=== PATIENT | female | born 1960 | race Caucasian/White ===

== ENCOUNTER → 2016-04-26 | Outpatient (CLI) | payer BC ==
[~2016-04-26] MED LIST: IOPAMIDOL (ISOVUE 370) 100 ML BTL IV ONE
--- NOTE | 2016-04-26 11:08 | DX ---
Excretory Urogram (IVP) Indication: Left pyeloplasty in June 2015. Mild left hydronephrosis on prior study. Technique: Training Director view of the abdomen followed by sequential anterior and oblique views of the abdomen including 40 minutes post void image. 100 mL of Isovue-300 were uneventfully intravenously administe red. Cumulative dose: 14 mGy. Comparison: Excretory urogram dated September 20, 2015 Findings: Training Director radiograph reveals normal bowel pattern. No calculi overlying the kidneys or expected course of the ureters. The immediate image reveals prompt symmetric nephrograms and early excretion into normal caliber rajiv p bilateral calyces. The 5 minute image reveals symmetric filling of bilateral normal calyces, bilateral mildly distended renal pelves and normal caliber proximal ureters. The oblique 5 minute views reveal normal symmetric downstream contrast in the ureters and early filling of the urinary bladder. The 10 and 20 minute AP and oblique views reveal symmetric drainage of contrast from the pelvicalycea l systems, in fact, the left renal pelvis drains quicker than the right. The 40 minute postvoid image reveals nearly completely decompressed left pelvicalyceal system and min imal residual contrast in the right renal pelvis. The urinary bladder is nearly completely empty. Impression: No residual hydronephrosis. Bilateral pelvicalyceal systems are normal.
== END ==
LOC: FIMAGING 08:34
PROVIDERS: ATTEND Specialist
PROC: BT1F1ZZ Fluoroscopy of Left Kidney, Ureter and Bladder using Low Osmolar Contrast (ICD-10-PCS; principal; 2016-04-26)
PROC: BT1D1ZZ Fluoroscopy of Right Kidney, Ureter and Bladder using Low Osmolar Contrast (ICD-10-PCS; principal; 2016-04-26)
DX: Z03.89 Encounter for observation for other suspected diseases and conditions ruled out (principal); Z98.890 Other specified postprocedural states; Z88.0 Allergy status to penicillin
CPT/HCPCS: Q9967

== ENCOUNTER → 2017-05-16 | Outpatient (CLI) | payer BC | LOC: FIMAGING 12:01 | PROVIDERS: ATTEND Family Medicine | DX: J40 Bronchitis, not specified as acute or chronic (principal); J84.10 Pulmonary fibrosis, unspecified ==

== ENCOUNTER → 2017-08-29 | Outpatient (CLI) | payer BC | LOC: FIMAGING 14:45 | PROVIDERS: ATTEND Family Medicine | DX: Z12.31 Encounter for screening mammogram for malignant neoplasm of breast (principal) ==

== ENCOUNTER 2018-04-10 19:04 | Emergency (ER) | payer BC ==
[2018-04-10 19:12] VITALS: BP 104/74
--- NOTE | 2018-04-10 19:26 | EDPHY ---
H & P Time Seen by Provider: 04/10/18 19:21 HPI/ROS: CHIEF COMPLAINT: Left index finger skin avulsion HISTORY OF PRESENT ILLNESS: 57-year-old [id number] female with out-of- date tetanus was cutting food this evening sustained superficial skin avulsion to her left index finger distal phalanx. Bleeding continues. No paresthesia. PHYSICAL EXAM (Prior to examination, patient consented to physical exam, hands were washed and my usual and customary physical exam procedures followed) 1) GENERAL: Well-developed, well-nourished, alert and oriented. Appears to be in no acute distress. 2) HEAD: Normocephalic 3) HEENT: sclera anicteric 4) LUNGS: Breathing comfortably. 5) SKIN: Left index finger distal phalanx superficial skin avulsion with slow capillary like bleed. No signs of infection. Full sensation. Smoking Status: Former smoker Constitutional: Initial Vital Signs Temperature (C) 36.5 C 04/10/18 19:09 Heart Rate 67 04/10/18 19:09 Respiratory Rate 18 04/10/18 19:09 Blood Pressure 104/74 04/10/18 19:09 O2 Sat (%) 97 04/10/18 19:09 O2 Delivery Mode Room Air Allergies/Adverse Reactions: Penicillins Allergy (Verified 04/10/18 19:09) Hives Sulfa (Sulfonamide Antibiotics) Allergy (Verified 04/10/18 19:09) Itching Home Medications: Medication Instructions Recorded Herbals/Supplements -Info Only 1 ea PO DAILY 06/21/15 Ibuprofen [Motrin (*)] 400 mg PO BID PRN 06/21/15 traZODone [traZODONE 100MG (*)] 100 mg PO HS 06/21/15 Hydrocodone/APAP 5/325 [[place] 1 - 2 tab PO Q4H PRN #20 tab 07/09/15 5/325 (*)] MDM/Departure - MDM Medications Given: Discontinued Medications Diphtheria/Tetanus/Acell Pertussis (Boostrix) 0.5 ml IM .ONCE ONE Stop: 04/10/18 19:51 Last Admin: 04/10/18 19:53 Dose: 0.5 ml ED Course/Re-evaluation: 7:24 p.m.: As I was about to place the digital nerve block the patient complained of feeling dizzy, lightheaded. She was laid down. Digital nerve block will be held. Suspect vasovagal near-syncope secondary to site of needle blood. Her tetanus will be updated as well. Care of patient under supervision of secondary supervising physician Dr Marcello Harris . - Depart Disposition: Home, Routine, Self-Care Clinical Impression: Skin avulsion left index finger Condition: Good Instructions: Skin Avulsion (ED) Additional Instructions: Return to the ER if you develop redness, swelling, discharge, warmth to the wound, red streaks going up your arm, or any other symptoms that concern you. Referrals: Kady Whitlock MD [Primary Care Provider] - 2-3 days, call for appt.
[2018-04-10] MEDS ORDERED: TDAP ADULT 0.5 ML INJ (BOOSTRIX) IM ONE (19:50)
== END 2018-04-10 20:08 | disposition home or self-care (01) ==
DX: S61.211A Laceration without foreign body of left index finger without damage to nail, initial encounter (principal); W26.0XXA Contact with knife, initial encounter; Y93.G1 Activity, food preparation and clean up; Y92.9 Unspecified place or not applicable; Z23 Encounter for immunization